=== PATIENT | female | born 1945 | race Caucasian/White ===

== ENCOUNTER 2018-06-19 19:29 | Emergency (ER) | END 2018-06-19 20:47 | disposition home or self-care (01) ==

== ENCOUNTER 2018-11-25 13:17 | Emergency (ER) | payer MEDICARE, OTHER ==
[~2018-11-25] VITALS: Ht 152.4 cm; Wt 59.2 kg
[~2018-11-25 13:17] MED LIST: LORA10TA3 PO; TRAM50TA2 PO; TRIA15CR55 TOP
[2018-11-25 13:22] VITALS: BP 149/84; PULSE 96; RESP 18; Ht 152.4 cm; Wt 59.2 kg
--- NOTE | 2018-11-25 13:57 | ERD ---
ER Documentation Chief Complaint Chief Complaint pt bib family with c/o sore throat, fever, cough for a few days, HPI 73-year-old female, without significant medical history, presents to the emergency department, brought in by family, complaining of 5 days with worsening of sore throat, fever, T-max 101, associated with cough, runny nose chest congestion and general malaise. No treatment attempted at this time. The patient denies chest pain, no shortness of breath, no diarrhea or constipation. ROS All systems reviewed and are negative except as per history of present illness. Medications Home Meds Active Scripts Acetaminophen* (Tylenol*) 325 Mg Tablet, 2 TAB PO Q8 PRN for PAIN AND OR ELEVATED TEMP, #20 TAB Prov:DRE MOSQUEDA MD 11/25/18 Guaifenesin-Codeine Phosphate* (Guaifenesin* AC Cough Syrup) 473 Ml Liquid, 5 ML PO QHS PRN for COUGH, #60 ML Prov:DRE MOSQUEDA MD 11/25/18 Albuterol Sulfate* (Proair HFA*) 8.5 Gm Hfa.aer.ad, 2 PUFF INH Q4H PRN for WHEEZING AND SOB, #1 INHALER Prov:DRE MOSQUEDA MD 11/25/18 Clarithromycin* (Clarithromycin*) 500 Mg Tablet, 500 MG PO BID for 7 Days, TAB Prov:DRE MOSQUEDA MD 11/25/18 Loratadine* (Loratadine*) 10 Mg Tablet, 10 MG PO DAILY, #30 TAB Prov:MARGO BURGESS PA-C 06/19/18 Triamcinolone Acetonide (Triamcinolone Acetonide) 0.1% - 15 Gm Cream.gm., 1 APPLIC TOP BID, #1 TUB Prov:MARGO BURGESS PA-C 06/19/18 Tramadol HCl (Tramadol HCl) 50 Mg Tablet, 50 MG PO TID PRN for PAIN, #15 TAB Prov:KEYANNA SELBY MD 05/23/16 Allergies Allergies: Coded Allergies: Penicillins (Verified Allergy, Unknown, 05/23/16) PMhx/Soc History of Surgery: Yes (CSX1, METAL PLATE PLACEMENT AND REMOVAL 1988) Anesthesia Reaction: No Hx Neurological Disorder: No Hx Respiratory Disorders: No Hx Cardiac Disorders: Yes (HTN, HIGH CHOLESTEROL) Hx Psychiatric Problems: No Hx Miscellaneous Medical Probl: Yes (dm) Hx Alcohol Use: No Hx Substance Use: No Hx Tobacco Use: No Physical Exam Vitals Vital Signs Date Temp Pulse Resp B/P (MAP) Pulse Ox O2 O2 Flow FiO2 Time Delivery Rate 11/25/18 98.2 96 18 149/84 98 13:22 (105) Physical Exam Const: No acute distress Head: Atraumatic Eyes: Normal Conjunctiva ENT: Erythematous oropharynx, right ear with significant indio-tympanic erythema and retraction. Neck: Full range of motion. No meningismus. Resp: Diffuse rhonchi to auscultation bilaterally Cardio: Regular rate and rhythm, no murmurs Abd: Soft, non tender, non distended. Normal bowel sounds Skin: No petechiae or rashes Back: No midline or flank tenderness Ext: No cyanosis, or edema Neur: Awake and alert Psych: Normal Mood and Affect Procedures/MDM Vital signs stable, no respiratory distress. Differential diagnosis include but not limited to: Respiratory infection bacterial/viral/fungal. Croup, bronchiolitis, pneumonitis, allergies, GERD. Less likely foreign body aspiration, cardiac related. Physical examination and clinical presentation consistent most likely with viral infection with early superimposed bacterial infection. During the ED course the patient remained stable, no new complaints. Treatment options and clinical impression discussed with mother who agrees with management. The patient is stable to be treated outpatient and will be discharged home with a Rx for clarithromycin, pro-air and cough medication. Some side effects of prescribed medications (headache, rash, nausea, vomiting, diarrhea, interactions with other medications) were reviewed. The patient needs to follow up with the primary care provider in the next 48h. If symptoms persist, worsen or new symptoms develop, then patient should return to the ED immediately. Disclaimer: Inadvertent spelling and grammatical errors are likely due to EHR/dictation software use and do not reflect on the overall quality of patient care. Also, please note that the electronic time recorded on this note does not necessarily reflect the actual time of the patient encounter. Departure Diagnosis: Primary Impression: Cough Additional Impression: Superimposed infection Condition: Stable Additional Instructions: Muchas carrie por [facility] para yanez servicio. Esperamos que en yanez visita a la drew de emergencia yanez problema medico haya sido solucionado y que se sienta mucho mejor. Para estar seguros que yanez mejoria sigue en proceso, le pedimos el favor de hacer rufus timothy de seguimiento medico con yanez doctor primario en los proximos 2-4 sierra. Lleve con usted estos documentos y las medicinas recetadas. Si andrew sintomas empeoran, NO SE ESPERE, por favor regrese a drew de emergencia INMEDIATAMENTE. En rahul que usted no tenga un mdico de atencin primaria: Llame al mdico o clnica comunitaria de referencia que aparece abajo christina las horas de consultorio para hacer rufus timothy para que le vean. CLINICAS: [place] [id number] [phone] [facility] [phone] [facility] [phone] [facility] [phone] [place] [id number] [phone] [place] [id number] [phone] DRE LARKIN MD Nov 25, 2018 13:57
[2018-11-25] MEDS ORDERED: CLAR500T PO (13:59)
[2018-11-25] MEDS ORDERED: ACET325T33 PO (13:59)
[2018-11-25] MEDS ORDERED: GUAI473L22 PO (13:59)
[2018-11-25] MEDS ORDERED: ALBU8.5H8 INH (13:59)
== END 2018-11-25 14:19 | disposition home or self-care (01) ==
LOC: FTE 13:17
DX: A49.9 Bacterial infection, unspecified (principal); I10 Essential (primary) hypertension; E11.9 Type 2 diabetes mellitus without complications
CPT/HCPCS: 99283